=== PATIENT | female | born 1965 | race Caucasian/White ===

== ENCOUNTER → 2020-12-15 | Outpatient (CLI) | payer BC ==
[~2020-12-15] MED LIST: ALEVE220 MG PO; CYCLOBENZAPRINE5 MG PO; FERROUS SULFAT325 M2 PO; LEVOFLOXACIN750 MG PO; MAG-OX 400 TAB400 MG PO; MAGNESIUM; NIACIN500 M1 PO; PERCOCET 10-321 EACH PO; TORADOL 10 MG T10 MG PO; VITAMIN C1000 MG PO; VITAMIN D250000 UNIT PO; VITAMIN D325 MCG PO; ZINC50 M1 PO; ZINC50 M2 PO; [UNRECOGNIZED DRUG - OTHER] PO
[2020-12-15 09:04] LABS: HEMOGLOBIN 15.1 gm/dl (12.3-15.3); RED BLOOD COUNT 5.01 M/UL (4.00-5.10); WHITE BLOOD COUNT 6.4 K/UL (4.5-11.0)
[2020-12-15 09:40] LABS: BUN/CREATININE RATIO 10 (0-10)
== END ==
LOC: OPSV2 08:00
PROVIDERS: Orthopaedic Surgery
DX: Z01.818 Encounter for other preprocedural examination (principal); Z01.812 Encounter for preprocedural laboratory examination; Z01.810 Encounter for preprocedural cardiovascular examination; G56.01 Carpal tunnel syndrome, right upper limb
CPT/HCPCS: 36415; 71046; 80048; 85027; 93005

== ENCOUNTER → 2020-12-21 | Day surgery (SDC) | payer BC | END | disposition home or self-care (01) | LOC: OR 06:19 | DX: G56.01 Carpal tunnel syndrome, right upper limb (principal); M54.2 Cervicalgia; Z88.0 Allergy status to penicillin; Z88.2 Allergy status to sulfonamides; Z88.6 Allergy status to analgesic agent; Z20.822 Contact with and (suspected) exposure to COVID-19; E78.5 Hyperlipidemia, unspecified; Z87.891 Personal history of nicotine dependence; M19.90 Unspecified osteoarthritis, unspecified site | CPT/HCPCS: J1100; J2001; J2250; J2405; J2704; J3010; J7120 ==

== ENCOUNTER 2021-01-13 11:54 | Inpatient (IN) | payer BC ==
[~2021-01-13] VITALS: Ht 172.7 cm; Wt 107.5 kg
[~2021-01-13 11:54] MED LIST changes: -FERROUS SULFAT325 M2 PO; -LEVOFLOXACIN750 MG PO; -MAG-OX 400 TAB400 MG PO; -VITAMIN D325 MCG PO; -ZINC50 M2 PO
[2021-01-13 12:53] LABS: HEMOGLOBIN 15.6 gm/dl (12.3-15.3); RED BLOOD COUNT 5.2 M/UL (4.00-5.10); WHITE BLOOD COUNT 13.8 K/UL (4.5-11.0)
[2021-01-13 13:19] LABS: BUN/CREATININE RATIO 12 (0-10)
[2021-01-13] MEDS ORDERED: MAG-OX 400 TAB400 MG PO (16:17)
[2021-01-13] MEDS ORDERED: FERROUS SULFAT325 M2 PO (16:45)
[2021-01-13] MEDS ORDERED: VITAMIN D325 MCG PO (16:46)
[2021-01-14 05:32] LABS: ACINETOBACTER BAUMANNII Not Detected (Negative); CANDIDA ALBICANS Not Detected (Negative); CANDIDA KRUSEI Not Detected (Negative); CANDIDA TROPICALIS Not Detected (Negative); ENTEROCOCCUS Not Detected (Negative); HAEMOPHILUS INFLUENZAE Not Detected (Negative); KLEBSIELLA OXYTOCA Not Detected (Negative); KLEBSIELLA PNEUMONIAE Not Detected (Negative); KPC-CARBAPENEM-RESISTANCE GENE Not Detected (Negative); PROTEUS Not Detected (Negative); PSEUDOMONAS AERUGINOSA Not Detected (Negative); SERRATIA MARCESANS Not Detected (Negative); STAPHYLOCOCCUS Not Detected (Negative); STAPHYLOCOCCUS AUREUS Not Detected (Negative); STREP AGALACTIAE (GROUP B) Not Detected (Negative); STREP PYOGENES (GROUP A) Not Detected (Negative); STREPTOCOCCUS Not Detected (Negative); mecA (METHICILLIN RESIST GENE Not Detected (Negative); vanA/B (VANCOMYCIN RESIST GENE Not Detected (Negative)
[2021-01-14 05:55] LABS: WHITE BLOOD COUNT 16.6 K/UL (4.5-11.0)
[2021-01-14 05:57] LABS: HEMOGLOBIN 13.1 gm/dl (12.3-15.3); RED BLOOD COUNT 4.33 M/UL (4.00-5.10)
[2021-01-14 07:21] LABS: ESCHERICHIA COLI DETECTED (Negative)
[2021-01-15 06:55] LABS: HEMOGLOBIN 12.7 gm/dl (12.3-15.3); RED BLOOD COUNT 4.23 M/UL (4.00-5.10); WHITE BLOOD COUNT 13.1 K/UL (4.5-11.0)
[2021-01-15 07:25] LABS: BUN/CREATININE RATIO 11 (0-10)
[2021-01-15 08:09] LABS: SARS COV-2 IGG AB Positive (Negative)
[2021-01-16 03:31] LABS: HEMOGLOBIN 12.4 gm/dl (12.3-15.3); RED BLOOD COUNT 4.15 M/UL (4.00-5.10); WHITE BLOOD COUNT 11.3 K/UL (4.5-11.0)
[2021-01-16] MEDS ORDERED: LEVOFLOXACIN750 MG PO (12:06)
[2021-01-16 15:11] LABS: SARS COV-2 IGM AB Positive (Negative)
[2021-01-23] MEDS ORDERED: ZINC50 M2 PO (16:45)
[2021-01-23] MEDS ORDERED: ALEVE220 MG PO (16:45)
== END 2021-01-17 17:33 | disposition home or self-care (01) | DRG 872 ==
LOC: ER1 11:54 → M/S 16:21 → CDU 16:21 → PROG CARE 17:39 → M/S 18:07
PROVIDERS: Internal Medicine; Internal Medicine Pulmonary Disease; Physician Assistant; ADMIT Internal Medicine
DX: A41.89 Other specified sepsis (principal); N10 Acute pyelonephritis; E86.0 Dehydration; E83.39 Other disorders of phosphorus metabolism; D69.6 Thrombocytopenia, unspecified; N28.9 Disorder of kidney and ureter, unspecified; K76.0 Fatty (change of) liver, not elsewhere classified; N28.1 Cyst of kidney, acquired; E66.9 Obesity, unspecified; Z98.51 Tubal ligation status; Z90.89 Acquired absence of other organs; Z86.16 Personal history of COVID-19; Z88.6 Allergy status to analgesic agent; Z88.0 Allergy status to penicillin; Z88.2 Allergy status to sulfonamides; Z81.1 Family history of alcohol abuse and dependence; Z68.33 Body mass index [BMI] 33.0-33.9, adult
CPT/HCPCS: 36415; 36600; 71045; 80048; 80053; 81001; 82550; 82553; 82728; 82803; 83605; 83615; 83735; 83880; 84100; 85025; 85379; 85384; 85610; 85730; 86140; 86769; 87040; 87077; 87086; 87150; 87186; 93005; 96374; 96375; 96376; 99285; J0696; J1650; J2060; J2270; J2405; J7030; Q9967; U0002

== ENCOUNTER → 2021-01-24 | Day surgery (SDC) | payer BC ==
[~2021-01-24] VITALS: Ht 175.3 cm; Wt 104.8 kg
[~2021-01-24] MED LIST changes: +FERROUS SULFAT325 M2 PO; +LEVOFLOXACIN750 MG PO; +MAG-OX 400 TAB400 MG PO; +VITAMIN D325 MCG PO; +ZINC50 M2 PO
== END | disposition home or self-care (01) ==
LOC: OR 06:12
DX: G56.02 Carpal tunnel syndrome, left upper limb (principal); G62.9 Polyneuropathy, unspecified; Z88.0 Allergy status to penicillin; Z88.2 Allergy status to sulfonamides; Z88.8 Allergy status to other drugs, medicaments and biological substances
CPT/HCPCS: J0690; J1100; J2001; J2250; J2405; J2704; J3010; J7120

== ENCOUNTER 2022-04-03 21:35 | Emergency (ER) | payer BC ==
[2022-04-03 23:19] LABS: HEMOGLOBIN 15.6 gm/dl (12.3-15.3); RED BLOOD COUNT 5.22 M/UL (4.00-5.10)
[2022-04-03 23:46] LABS: BUN/CREATININE RATIO 11 (0-10)
== END 2022-04-04 02:15 | disposition home or self-care (01) ==
LOC: ER1 21:35
PROVIDERS: Emergency Medicine
DX: R07.89 Other chest pain (principal); R51.9 Headache, unspecified
CPT/HCPCS: 70450; 71045; 80048; 83735; 84484; 85025; 93005; 99285